=== PATIENT | female | born 1945 | race Two or more races ===

== ENCOUNTER 2016-12-12 01:38 | Inpatient (IN) | payer BC, OTHER ==
--- NOTE | 2016-12-12 02:02 | PDOC ---
History of Present Illness - General History Source: Patient Exam Limitations: No Limitations - History of Present Illness Initial Comments: 12/12/16 02:20 Patient is a 71 year old female with a significant past medical history of osteoporosis who presents to the ED with right breast pain. Patient was lying in bed as she developed a pain under the right pain with sudden onset. Patient describes the pain as squeezing tightening localized under the right breast. Patient states that taking deep breath exacerbates the pain. Patient never had this pain before. Patient took 2 aspirin to alleviate the pain. She also reports taking Robitussin for the cough before getting into bed. No recent fall or trauma. <Aurelia Chacon - Last Filed: 12/12/16 05:04> <Siobhan Dia - Last Filed: 12/12/16 05:15> - General Chief Complaint: Pain Stated Complaint: PAIN TO RT BREAST Time Seen by Provider: 12/12/16 02:01 Past History <Aurelia Chacon - Last Filed: 12/12/16 05:04> - Psycho/Social/Smoking Cessation Hx Suicidal Ideation: No Smoking History: Never smoked Have you smoked in the past 12 months: No Information on smoking cessation initiated: No Hx Alcohol Use: No Drug/Substance Use Hx: No <Siobhan Dia - Last Filed: 12/12/16 05:15> - Past Medical History Allergies/Adverse Reactions: Allergies Allergy/AdvReac Type Severity Reaction Status Date / Time No Known Allergies Allergy Verified 12/12/16 01:47 Home Medications: Ambulatory Orders Unobtainable [Unobtainable] 12/12/16 Review of Systems - Review of Systems Able to Perform ROS?: Yes Comments:: 12/12/16 02:20 GENERAL/CONSTITUTIONAL: No fever or chills. No weakness. HEAD, EYES, EARS, NOSE AND THROAT: No change in vision. No ear pain or discharge. No sore throat. CHEST: (+)right breast pain CARDIOVASCULAR: No chest pain or shortness of breath. RESPIRATORY: (+)cough No wheezing, or hemoptysis. GASTROINTESTINAL: No nausea, vomiting, diarrhea or constipation. GENITOURINARY: No dysuria, frequency, or change in urination. MUSCULOSKELETAL: No joint or muscle swelling or pain. No neck or back pain. SKIN: No rash NEUROLOGIC: No headache, vertigo, loss of consciousness, or change in strength/ sensation. ENDOCRINE: No increased thirst. No abnormal weight change. HEMATOLOGIC/LYMPHATIC: No anemia, easy bleeding, or history of blood clots. ALLERGIC/IMMUNOLOGIC: No hives or skin allergy. <Aurelia Chacon - Last Filed: 12/12/16 05:04> *Physical Exam - Vital Signs Last Vital Signs Temp Pulse Resp BP Pulse Ox 97.5 F L 99 H 20 138/80 99 12/12/16 01:47 12/12/16 01:47 12/12/16 01:47 12/12/16 01:47 12/12/16 01:47 - Physical Exam Comments: 12/12/16 02:21 GENERAL: Awake, alert, and fully oriented, in no acute distress HEAD: No signs of trauma EYES: PERRLA, EOMI, sclera anicteric, conjunctiva clear ENT: Auricles normal inspection, hearing grossly normal, nares patent, oropharynx clear without exudates. Moist mucosa NECK: Normal ROM, supple, no lymphadenopathy, JVD, or masses CHEST: (+) tenderness to the right breast. LUNGS: Breath sounds equal, clear to auscultation bilaterally. No wheezes, and no crackles HEART: Regular rate and rhythm, normal S1 and S2, no murmurs, rubs or gallops ABDOMEN: Soft, nontender, normoactive bowel sounds. No guarding, no rebound. No masses EXTREMITIES: Normal range of motion, no edema. No clubbing or cyanosis. No cords, erythema, or tenderness NEUROLOGICAL: Cranial nerves II through XII grossly intact. Normal speech, normal gait SKIN: Warm, Dry, normal turgor, no rashes or lesions noted. <Aurelia Chacon - Last Filed: 12/12/16 05:04> - Vital Signs Last Vital Signs Temp Pulse Resp BP Pulse Ox 97.5 F L 99 H 20 138/80 99 12/12/16 01:47 12/12/16 01:47 12/12/16 01:47 12/12/16 01:47 12/12/16 01:47 <Siobhan Dia - Last Filed: 12/12/16 05:15> ED Treatment Course - LABORATORY CBC & Chemistry Diagram: 12/12/16 02:22 12/12/16 02:22 <Aurelia Chacon - Last Filed: 12/12/16 05:04> - LABORATORY CBC & Chemistry Diagram: 12/12/16 02:22 12/12/16 02:22 <Siobhan Dia - Last Filed: 12/12/16 05:15> Medical Decision Making - Medical Decision Making 12/12/16 05:04 A call was placed to Dr. Gracie Valadez at her service. Awaiting a call back. <Aurelia Chacon - Last Filed: 12/12/16 05:04> - Medical Decision Making 12/12/16 04:33 Pt woke up in the middle of the night with right chest pain. She is grabbing her right breast and yelling in pain. Pain is not in the breast. SHe has clear lungs and normal heart rate and EKG is normal. CT chest shows RML pneumonia vs infarct: Patient Name: Diane Ortez THIS IS A PRELIMINARYREPORT FROM [facility] ATTENDANT EXAM: CT chest without contrast IMAGES: 381 INDICATION: Sudden right chest pain DATE OF SERVICE: 2016-12-12 02:58:01.0 COMPARISON: none FINDINGS: There is no aortic aneurysm. There is no significant mediastinal or hilar adenopathy. The heart size is normal. The trachea and bronchi are patent. There is no pleural or pericardial effusion. There is a moderate-sized right middle lobe consolidation with adjacent groundglass consolidation and small lingular consolidation which may represent pneumonia. Right middle lobe pulmonary infarct should also be considered, which can be followed up with CT angiography. No pneumothorax. Upper abdominal structures are normal. No fractures. As discussed with at 3:30 AM. IMPRESSION: Right middle lobe , greater than lingula, consolidations may represent pneumonia but right middle lobe infarct is considered which can be further evaluated with a CT angiogram. THIS DOCUMENT HAS BEEN ELECTRONICALLY SIGNED Ej Mohan MD CTA was done: Patient Name: Diane Ortez THIS IS A PRELIMINARYREPORT FROM [facility]END[facility] EXAM: CT angiogram of the chest IMAGES: 527 INDICATION: Rule out PE DATE OF SERVICE: 2016-12-12 04:08:12.0 COMPARISON: Recent unenhanced exam FINDINGS: There is no PE . Aortic aneurysm or dissection. Heart size is normal. The trachea and bronchi are patent. There is no pleural or pericardial effusion. No change in right middle lobe airspace consolidation with adjacent groundglass opacities or small lingular consolidation No fractures identified. The upper abdominal structures are normal. IMPRESSION: No PE identified. No change in right middle lobe and lingular consolidations which may represent pneumonia. THIS DOCUMENT HAS BEEN ELECTRONICALLY SIGNED Pt has a pneumonia; she will be treated with ceftriaxone and zithromax 12/12/16 04:41 Dr. Valadez is aware of the patient <Siobhan Dia - Last Filed: 12/12/16 05:15> *DC/Admit/Observation/Transfer - Attestations Scribe Attestion: 12/12/16 02:21 Documentation prepared by ASHOK Squires, acting as medical director of hospice for Siobhan Dia MD. <Aurelia Chacon - Last Filed: 12/12/16 05:04> - Discharge Dispostion Admit: Yes <Siobhan Dia - Last Filed: 12/12/16 05:15> Diagnosis at time of Disposition: Pneumonia, Chest pain of uncertain etiology - Discharge Dispostion Condition at time of disposition: Guarded - Referrals Referrals: Rosy Whalen MD [Primary Care Provider] -
[2016-12-12] MEDS ORDERED: KETOROLAC TROMETHAMINE 30 MG/1 ML VIAL IVPUSH ONE (02:17)
[2016-12-12] MEDS ORDERED: morphine CARPU-JECT 2 MG/1 ML DISP.SYRIN IVPUSH ONE (02:18)
[2016-12-12] MEDS ORDERED: morphine CARPU-JECT 2 MG/1 ML DISP.SYRIN ONE (02:26)
[2016-12-12] MEDS ORDERED: KETOROLAC TROMETHAMINE 30 MG/1 ML VIAL ONE (02:26)
[2016-12-12 02:42] LABS: BASOPHIL 0.2 % (0-2.0); EOSINOPHIL 0.4 % (0-4.5); MCH 29.7 pg (25.7-33.7); MCHC 33.4 g/dl (32.0-36.0); MEAN CELL VOLUME 89.2 fl (80-96); MEAN PLT VOLUME 7.9 fl (7.5-11.1); NEUTROPHILS 81.5 % (42.8-82.8); PLATELET COUNT 267 K/MM3 (134-434); RDW 13.9 % (11.6-15.6)
[2016-12-12 02:53] LABS: ALBUMIN 3.9 g/dl (3.4-5.0); ANION GAP 13 (8-16); BILIRUBIN,TOTAL 0.5 mg/dL (0.2-1.0); CALCIUM 8.6 mg/dL (8.5-10.1); CO2 25 mmol/L (21-32); CREATININE 0.7 mg/dL (0.55-1.02); GLUCOSE,RANDOM 138 mg/dL (74-106); SGOT/AST 17 U/L (15-37); SGPT/ALT 20 U/L (12-78); TOT PROT 7.2 g/dl (6.4-8.2)
[2016-12-12 02:55] LABS: ALK PHOS 53 U/L (45-117); TROPONIN I < 0.02 ng/ml (0.00-0.05)
[2016-12-12 04:06] LABS: INR 1.04 (0.82-1.09); PROTHROMBIN TIME (PATIENT) 11.5 SEC (9.98-11.88)
[2016-12-12 04:09] LABS: ACTIVATED PTT 33.1 SECONDS (26.9-34.4)
[2016-12-12] MEDS ORDERED: AZITHROMYCIN IVPB 250 ML IVPB ONE ×2 (04:36→04:52)
[2016-12-12] MEDS ORDERED: CEFTRIAXONE 50 ML IVPB ONE (04:36)
[2016-12-12] MEDS ORDERED: CEFTRIAXONE 50 ML ONE (04:52)
--- NOTE | 2016-12-12 10:28 | EKG ---
Test Reason : Blood Pressure : / mmHG Vent. Rate : 099 BPM Atrial Rate : 099 BPM P-R Int : 198 ms QRS Dur : 078 ms QT Int : 350 ms P-R-T Axes : 070 053 045 degrees QTc Int : 449 ms SINUS RHYTHM WITH OCCASIONAL PREMATURE VENTRICULAR COMPLEXES OTHERWISE NORMAL ECG WHEN COMPARED WITH ECG OF 25-JAN-2010 14:28, PREMATURE VENTRICULAR COMPLEXES ARE NOW PRESENT Confirmed by KENYATTA STARR, JARRET ([id number]) on 12/12/2016 10:28:11 AM Referred By: Confirmed By:JARRET YOU MD
[2016-12-12 14:17] LABS: TROPONIN I < 0.02 ng/ml (0.00-0.05)
--- NOTE | 2016-12-12 15:36 | CONSULT ---
Consultation: REQUESTING PROVIDER: CONSULT REQUEST: We have been asked to medically evaluate this patient for ( pulmonology). HISTORY OF PRESENT ILLNESS: Patient is a 71 year old female with a significant past medical history of osteoporosis who presents to the ED with right sided chest pain . Patient was lying in bed as she developed a pain under the right breast pain with sudden onset. pain was sharp, non radiating, increases with deep inspiration. Patient took 2 aspirin to alleviate the pain. Patient states that yesterday she also developed cough for which she took robutisin before getting into bed. Also reports chills on Monday. Denies fever. In ed CT was done which shower right upper lobe pneumonia. Patient states that after getting pain meds her pain has decreased and is feeling much better. denies sob denies sick contact, travel. non smoker. REVIEW OF SYSTEMS: CONSTITUTIONAL: Absent: fever, chills, diaphoresis, HEENT: Absent: rhinorrhea, nasal congestion, throat pain, throat swelling, CARDIOVASCULAR: Absent: chest pain, syncope, palpitations, irregular heart rate, lightheadedness , peripheral edema RESPIRATORY: Absent: cough, shortness of breath, dyspnea with exertion, orthopnea, wheezing, stridor, hemoptysis GASTROINTESTINAL: Absent: abdominal pain, abdominal distension, nausea, vomiting, GENITOURINARY: Absent: dysuria, frequency, urgency, PHYSICAL EXAMINATION Vital Signs - 24 hr 12/12/16 12/12/16 12/12/16 07:11 12:18 13:40 Temperature 98.2 F Pulse Rate [ 75 77 85 Right Apical] Respiratory 18 20 18 Rate Blood Pressure 108/57 180/113 124/57 [Right Arm] O2 Sat by Pulse 100 96 Oximetry (%) GENERAL: Awake, alert, and fully oriented, in no acute distress. HEAD: Normal with no signs of trauma. EYES: extraocular movements intact EARS, NOSE, THROAT: , oropharynx clear without exudates. Moist mucous membranes. LUNGS: Breath sounds equal, clear to auscultation bilaterally. crackles in right upper lobe. HEART:s1s2 normal ABDOMEN: Soft, nontender, not distended, normoactive bowel sounds, UPPER EXTREMITIES: 2+ pulses, warm, well-perfused. No cyanosis. LOWER EXTREMITIES: warm, well-perfused. No calf tenderness. No peripheral edema. Laboratory Results - last 24 hr 12/12/16 12:59 Creatine Kinase 107 Troponin I < 0.02 Active Medications Generic Name Dose Route Start Last Admin Trade Name Freq PRN Reason Stop Dose Admin Acetaminophen 650 mg 12/12/16 11:05 Tylenol - PO Q6H PRN FEVER OR PAIN Azithromycin 500 mg/ Dextrose 250 mls @ 250 mls/hr 12/13/16 10:00 IVPB DAILY VARUN Ceftriaxone Sodium 1 gm/ 50 mls @ 100 mls/hr 12/13/16 10:00 Dextrose IVPB DAILY VARUN ASSESSMENT/PLAN: community acquired pneumonia IV antibiotics ceftriaxone and azithro monitor vitals oxygen to keep spo2> 93 duoneb neb prn, if patient is short of breath get sputum culture get urine legionella/ strep pneumo pain control. Dispo: We will continue to follow the patient. Thank you for this consultative opportunity. Visit type - Emergency Visit Emergency Visit: Yes ED Registration Date: 12/12/16 Care time: The patient presented to the Emergency Department on the above date and was hospitalized for further evaluation of their emergent condition. - New Patient This patient is new to me today: Yes Date on this admission: 12/12/16 - Critical Care Critical Care patient: No
[2016-12-12] MEDS ORDERED: ALBUTEROL SO4 2.5/IPRATROPIUM 0.5 INH SOL 3 ML VIAL.NEB. NEB PRN (15:43)
[2016-12-12] MEDS ORDERED: KETOROLAC TROMETHAMINE 15 MG/ML VIAL IVPUSH PRN (15:47)
--- NOTE | 2016-12-12 16:15 | PN ---
Teaching Attending Note Name of Resident: Dane Dent ATTENDING PHYSICIAN STATEMENT I saw and evaluated the patient. I reviewed the resident's note and discussed the case with the resident. I agree with the resident's findings and plan as documented. PULMONARY IMP CHEST PAIN SYNDROME LIKELY PNEUMONIA RML,LINGULAR ANUM OSTEOPOROSIS PLAN IV ANTIBIOTICS O2 PRN SPUTUM C+S COLD AGGLUTININS F/U CHEST X-RAY TO DOCUMENT RESOLUTION OF INFILTRATES ANALGESICS DR GALLEGOS Problem List - Problems (1) Chest pain of uncertain etiology Code(s): R07.89 - OTHER CHEST PAIN (2) Pneumonia Code(s): J18.9 - PNEUMONIA, UNSPECIFIED ORGANISM (3) Osteoporosis Code(s): M81.0 - AGE-RELATED OSTEOPOROSIS W/O CURRENT PATHOLOGICAL FRACTURE
[2016-12-12 17:07] VITALS: BMI 19.7
--- NOTE | 2016-12-12 18:21 | HP ---
Admitting History and Physical - Primary Care Physician PCP: Patrick Valadez - Admission Chief Complaint: right under breast pain History of Present Illness: Pt woke up this AM, around 2 AM, with pain on the right side (under her right breast), worse with deep breathing. Pt came to ER, found to have PNA. History Source: Patient, Family Member (daugter at bedside) Limitations to Obtaining History: No Limitations - Past Medical History ...: No Musculoskeletal: Yes: Other (osteoporosis) - Smoking History Smoking history: Never smoked Have you smoked in the past 12 months: No - Alcohol/Substance Use Hx Alcohol Use: No Home Medications - Allergies Allergies/Adverse Reactions: Allergies Allergy/AdvReac Type Severity Reaction Status Date / Time No Known Allergies Allergy Verified 12/12/16 01:47 - Home Medications Home Medications: Ambulatory Orders Ibuprofen [Advil -] 2 tab PO PRN 12/12/16 Review of Systems - Review of Systems Constitutional: reports: Weakness (per patient daughter- over the last few days) . denies: Chills, Diaphoresis, Fever Eyes: denies: Blurred Vision, Double Vision, Eye Pain HENT: denies: Difficult Swallowing, Ear Discharge, Ear Pain, Epistaxis, Nasal Congestion, Throat Pain Neck: denies: Pain on Movement, Stiffness Cardiovascular: denies: Edema, Palpitations, Shortness of Breath Respiratory: denies: Cough, Exercise Intolerance, Hemoptysis, SOB, SOB on Exertion, Wheezing Gastrointestinal: denies: Abdominal Pain, Diarrhea, Nausea, Vomiting Genitourinary: denies: Burning, Discharge, Dysuria, Flank Pain, Frequency Breasts: reports: No Symptoms Reported Musculoskeletal: denies: Back Pain, Joint Swelling, Muscle Pain Integumentary: denies: Blister, Bruising, Erythema, Rash Neurological: denies: Change in LOC, Change in Speech, Numbness, Unsteady Gait Endocrine: denies: Excessive Sweating, Intolerance to Cold Hematology/Lymphatic: denies: Easily Bruised, Excessive Bleeding Psychiatric: denies: Anxiety, Depression Physical Examination Vital Signs: Vital Signs Temperature 99.2 F 12/12/16 16:06 Pulse Rate 89 12/12/16 16:06 Respiratory Rate 18 12/12/16 16:06 Blood Pressure 104/62 12/12/16 16:06 O2 Sat by Pulse Oximetry (%) 96 12/12/16 16:06 Constitutional: Yes: Calm. No: No Distress, Anxious Eyes: Yes: Conjunctiva Clear, EOM Intact, PERRL HENT: Yes: Normocephalic. No: Epistaxis, Pharyngeal Erythema Neck: Yes: Trachea Midline. No: Lymphadenopathy Cardiovascular: Yes: Regular Rate and Rhythm, S1, S2 Respiratory: Yes: Regular, Other (coarse on the right side; possible egophonia mid right lung) Gastrointestinal: Yes: Normal Bowel Sounds, Soft. No: Palpable Mass, Tenderness ...Rectal Exam: Yes: Deferred Renal/: No: CVA Tenderness - Left, CVA Tenderness - Right Breast(s): Yes: Other (deferred) Musculoskeletal: No: Back Pain, Joint Swelling Extremities: No: Cold, Cool, Cyanosis Edema: No Integumentary: No: Bruising, Rash Neurological: Yes: Alert, Oriented, Cran Nerves II-XII Intact Labs: reviewed Imaging - Results Chest X-ray: Report Reviewed Cat Scan: Report Reviewed Problem List - Problems (1) Pneumonia Assessment/Plan: IV abtx Pulmonary consult AM labs Code(s): J18.9 - PNEUMONIA, UNSPECIFIED ORGANISM (2) Osteoporosis Code(s): M81.0 - AGE-RELATED OSTEOPOROSIS W/O CURRENT PATHOLOGICAL FRACTURE (3) Chest pain of uncertain etiology Assessment/Plan: pain control Code(s): R07.89 - OTHER CHEST PAIN Assessment/Plan OOBTC AM labs
[2016-12-13 08:00] LABS: MCH 30.1 pg (25.7-33.7); MCHC 33.4 g/dl (32.0-36.0); MEAN CELL VOLUME 90.1 fl (80-96); MEAN PLT VOLUME 7.6 fl (7.5-11.1); PLATELET COUNT 259 K/MM3 (134-434); RDW 14.1 % (11.6-15.6); WHITE BLOOD COUNT 7.6 K/mm3 (4.0-10.0)
[2016-12-13] MEDS: ACETAMINOPHEN 325 MG TABLET (FP) PO PRN (08:21)
[2016-12-13 08:22] LABS: ALBUMIN 3.7 g/dl (3.4-5.0); ANION GAP 9 (8-16); CALCIUM 8.8 mg/dL (8.5-10.1); CO2 27 mmol/L (21-32); GLUCOSE,RANDOM 93 mg/dL (74-106)
[2016-12-13 08:26] LABS: ALK PHOS 51 U/L (45-117); BILIRUBIN,TOTAL 0.4 mg/dL (0.2-1.0); CREATININE 0.6 mg/dL (0.55-1.02); SGOT/AST 16 U/L (15-37); SGPT/ALT 18 U/L (12-78); TOT PROT 7.2 g/dl (6.4-8.2)
--- NOTE | 2016-12-13 09:09 | PN ---
Physical Exam: SUBJECTIVE: Patient seen and examined Patient feels better, states pain has decreased. denies sob, Palpitations states she coughed once in morning and produce white color sputum OBJECTIVE: Vital Signs Period Temp Pulse Resp BP Sys/Marcano Pulse Ox Last 24 Hr 98.2 F-99.2 F 77-89 18-20 104-180/57-113 96-96 GENERAL: Awake, alert, and fully oriented, in no acute distress. HEAD: Normal with no signs of trauma. EARS, NOSE, THROAT: , oropharynx clear without exudates. Moist mucous membranes. LUNGS: Breath sounds equal, clear to auscultation bilaterally. mild crackles in right upper lobe. HEART:s1s2 normal ABDOMEN: Soft, nontender, not distended, normoactive bowel sounds, UPPER EXTREMITIES: 2+ pulses, warm, well-perfused. No cyanosis. LOWER EXTREMITIES: warm, No calf tenderness. No peripheral edema. Laboratory Results - last 24 hr 12/12/16 12/13/16 12/13/16 12:59 06:20 06:20 WBC 7.6 RBC 4.00 Hgb 12.0 Hct 36.1 MCV 90.1 MCHC 33.4 RDW 14.1 Plt Count 259 MPV 7.6 Sodium 141 Potassium 4.0 Chloride 105 Carbon Dioxide 27 Anion Gap 9 BUN 16 Creatinine 0.6 Creat Clearance w eGFR > 60 Random Glucose 93 D Calcium 8.8 Total Bilirubin 0.4 AST 16 ALT 18 Alkaline Phosphatase 51 Creatine Kinase 107 Troponin I < 0.02 Total Protein 7.2 Albumin 3.7 Active Medications Generic Name Dose Route Start Last Admin Trade Name Freq PRN Reason Stop Dose Admin Acetaminophen 650 mg 12/12/16 11:05 12/13/16 08:21 Tylenol - PO 650 mg Q6H PRN Administration FEVER OR PAIN Albuterol/Ipratropium 1 amp 12/12/16 15:43 Duoneb - NEB Q6H PRN SHORTNESS OF BREATH Azithromycin 500 mg 12/13/16 10:00 Zithromax 500mg Ivpb (Pre-Docked) IVPB DAILY VARUN Ceftriaxone Sodium 1 gm 12/13/16 10:00 Rocephin 1gm Ivpb (Pre-Docked) IVPB DAILY VARUN Ketorolac Tromethamine 15 mg 12/12/16 15:47 Toradol Injection - IVPUSH 12/17/16 15:46 Q6H PRN PAIN ASSESSMENT/PLAN: community acquired pneumonia osteoprosis pleuritic chest pain Plan IV antibiotics ceftriaxone and azithro monitor vitals oxygen to keep spo2> 93 duoneb neb prn, if patient has short of breath sputum culture pending urine legionella and influenza negative pain control. Visit type - Emergency Visit Emergency Visit: Yes ED Registration Date: 12/12/16 Care time: The patient presented to the Emergency Department on the above date and was hospitalized for further evaluation of their emergent condition. - New Patient This patient is new to me today: No - Critical Care Critical Care patient: No
[2016-12-13] MEDS: cefTRIAXone 1 GM/50 ML BAG (PRE-DOCKED) IVPB SCH (09:12)
[2016-12-13] MEDS ORDERED: CEFTRIAXONE 1 GM in DEXTROSE 5%-WATER - 50 ML IVPB SCH (10:00)
[2016-12-13] MEDS ORDERED: AZITHROMYCIN IVPB 500 MG in DEXTROSE 5%-WATER - 250 ML IVPB SCH (10:00)
--- NOTE | 2016-12-13 10:27 | PN ---
Progress Note, Physician History of Present Illness: Pt still c/o right side chest/ breast pain with inspiration, cough. Pt. w/o SOB, palp., left side CP, abd pain. - Current Medication List Current Medications: Active Medications Acetaminophen (Tylenol -) 650 mg PO Q6H PRN PRN Reason: FEVER OR PAIN Last Admin: 12/13/16 08:21 Dose: 650 mg Albuterol/Ipratropium (Duoneb -) 1 amp NEB Q6H PRN PRN Reason: SHORTNESS OF BREATH Azithromycin (Zithromax 500mg Ivpb (Pre-Docked)) 500 mg IVPB DAILY VARUN Ceftriaxone Sodium (Rocephin 1gm Ivpb (Pre-Docked)) 1 gm IVPB DAILY VARUN Last Admin: 12/13/16 09:12 Dose: 1 gm Ketorolac Tromethamine (Toradol Injection -) 15 mg IVPUSH Q6H PRN PRN Reason: PAIN Stop: 12/17/16 15:46 - Objective Vital Signs: Vital Signs Temperature 98.5 F 12/13/16 08:47 Pulse Rate 80 12/13/16 08:47 Respiratory Rate 18 12/13/16 08:47 Blood Pressure 120/58 12/13/16 08:47 O2 Sat by Pulse Oximetry (%) 96 12/12/16 21:00 Constitutional: Yes: No Distress, Calm Cardiovascular: Yes: Regular Rate and Rhythm, S1, S2 Respiratory: Yes: Regular, Rales (on the right middle lung field) Gastrointestinal: Yes: Normal Bowel Sounds, Soft. No: Palpable Mass, Tenderness Edema: No Neurological: Yes: Alert, Oriented Labs: CBC, BMP 12/13/16 06:20 12/13/16 06:20 INR, PTT INR 1.04 (0.82-1.09) 12/12/16 03:30 Problem List - Problems (1) Pneumonia Assessment/Plan: IV abtx Pulmonary consult appreciated AM labs Code(s): J18.9 - PNEUMONIA, UNSPECIFIED ORGANISM (2) Osteoporosis Code(s): M81.0 - AGE-RELATED OSTEOPOROSIS W/O CURRENT PATHOLOGICAL FRACTURE (3) Chest pain of uncertain etiology Code(s): R07.89 - OTHER CHEST PAIN Assessment/Plan OOBTC AM labs
[2016-12-13] MEDS: AZITHROMYCIN IVPB 500 MG/250 ML D5W PRE-DOCKED IVPB SCH (10:37)
--- NOTE | 2016-12-13 11:09 | PN ---
Teaching Attending Note Name of Resident: Dane Dent ATTENDING PHYSICIAN STATEMENT I saw and evaluated the patient. I reviewed the resident's note and discussed the case with the resident. I agree with the resident's findings and plan as documented. SUBJECTIVE: Breathing feels better today. Still with pleuritic type pain with cough and deep breathing in the Right anterior chest wall. OBJECTIVE: Intake & Output 12/10/16 12/11/16 12/12/16 12/13/16 23:59 23:59 23:59 23:59 Intake Total 120 Balance 120 Weight 100 lb 12.8 oz Last Vital Signs Temp Pulse Resp BP Pulse Ox 98.5 F 80 18 120/58 96 12/13/16 08:47 12/13/16 08:47 12/13/16 08:47 12/13/16 08:47 12/12/16 21:00 Active Medications Acetaminophen (Tylenol -) 650 mg PO Q6H PRN PRN Reason: FEVER OR PAIN Last Admin: 12/13/16 08:21 Dose: 650 mg Albuterol/Ipratropium (Duoneb -) 1 amp NEB Q6H PRN PRN Reason: SHORTNESS OF BREATH Azithromycin (Zithromax 500mg Ivpb (Pre-Docked)) 500 mg IVPB DAILY [facility] Last Admin: 12/13/16 10:37 Dose: 500 mg Ceftriaxone Sodium (Rocephin 1gm Ivpb (Pre-Docked)) 1 gm IVPB DAILY [facility] Last Admin: 12/13/16 09:12 Dose: 1 gm Ketorolac Tromethamine (Toradol Injection -) 15 mg IVPUSH Q6H PRN PRN Reason: PAIN Stop: 12/17/16 15:46 Methylprednisolone Sodium Succinate (Solu-Medrol -) 40 mg IVPB DAILY [facility] Stop: 12/16/16 10:01 GENERAL: Awake, alert, oriented, in no acute distress. HEAD: Normal with no signs of trauma. EARS, NOSE, THROAT: , oropharynx clear without exudates. Moist mucous membranes. LUNGS: Few faint rhonchi / crackles in right mid lung field HEART:s1s2 normal ABDOMEN: Soft, nontender, not distended, normoactive bowel sounds, UPPER EXTREMITIES: 2+ pulses, warm, well-perfused. No cyanosis. LOWER EXTREMITIES: warm, No calf tenderness. No peripheral edema. Laboratory Results - last 24 hr 12/12/16 12/13/16 12/13/16 12:59 06:20 06:20 WBC 7.6 RBC 4.00 Hgb 12.0 Hct 36.1 MCV 90.1 MCHC 33.4 RDW 14.1 Plt Count 259 MPV 7.6 ESR 51 H Sodium Potassium Chloride Carbon Dioxide Anion Gap BUN Creatinine Creat Clearance w eGFR Random Glucose Calcium Total Bilirubin AST ALT Alkaline Phosphatase Creatine Kinase 107 Troponin I < 0.02 Total Protein Albumin 12/13/16 06:20 WBC RBC Hgb Hct MCV MCHC RDW Plt Count MPV ESR Sodium 141 Potassium 4.0 Chloride 105 Carbon Dioxide 27 Anion Gap 9 BUN 16 Creatinine 0.6 Creat Clearance w eGFR > 60 Random Glucose 93 D Calcium 8.8 Total Bilirubin 0.4 AST 16 ALT 18 Alkaline Phosphatase 51 Creatine Kinase Troponin I Total Protein 7.2 Albumin 3.7 ASSESSMENT/PLAN: RML community acquired pneumonia Osteoporosis Pleuritic chest pain Plan IV antibiotics : ceftriaxone and azithromycin oxygen as needed BD TX PRN Follow sputum culture Daily Medrol Pain control Ambulate Dr Alanis
[2016-12-13] MEDS ORDERED: methylPREDNISolone NA SUCC 40 MG/1 ML VIAL IVPB SCH (11:15)
--- NOTE | 2016-12-14 08:51 | PN ---
Physical Exam: SUBJECTIVE: Patient seen and examined patient feels better states breathing is much better. states pain has improved significantly. denies fever and chills. OBJECTIVE: Vital Signs Period Temp Pulse Resp BP Sys/Marcano Pulse Ox Last 24 Hr 97.7 F-98.3 F 74-78 18-20 100-111/57-65 97-97 GENERAL: Awake, alert, and fully oriented, in no acute distress. HEAD: Normal with no signs of trauma. EARS, NOSE, THROAT: , oropharynx clear without exudates. Moist mucous membranes. LUNGS: Breath sounds equal, clear to auscultation bilaterally. mild crackles in right upper lobe. HEART:s1s2 normal ABDOMEN: Soft, nontender, not distended, normoactive bowel sounds, UPPER EXTREMITIES: 2+ pulses, warm, well-perfused. No cyanosis. LOWER EXTREMITIES: warm, No calf tenderness. No peripheral edema. Laboratory Results - last 24 hr 12/13/16 12/13/16 06:20 06:20 ESR 51 H Sodium 141 Potassium 4.0 Chloride 105 Carbon Dioxide 27 Anion Gap 9 BUN 16 Creatinine 0.6 Creat Clearance w eGFR > 60 Random Glucose 93 D Calcium 8.8 Total Bilirubin 0.4 AST 16 ALT 18 Alkaline Phosphatase 51 Total Protein 7.2 Albumin 3.7 Active Medications Generic Name Dose Route Start Last Admin Trade Name Freq PRN Reason Stop Dose Admin Acetaminophen 650 mg 12/12/16 11:05 12/13/16 08:21 Tylenol - PO 650 mg Q6H PRN Administration FEVER OR PAIN Albuterol/Ipratropium 1 amp 12/12/16 15:43 Duoneb - NEB Q6H PRN SHORTNESS OF BREATH Azithromycin 500 mg 12/13/16 10:00 12/13/16 10:37 Zithromax 500mg Ivpb (Pre-Docked) IVPB 500 mg DAILY VARUN Administration Ceftriaxone Sodium 1 gm 12/13/16 10:00 12/13/16 09:12 Rocephin 1gm Ivpb (Pre-Docked) IVPB 1 gm DAILY VARUN Administration Ketorolac Tromethamine 15 mg 12/12/16 15:47 Toradol Injection - IVPUSH 12/17/16 15:46 Q6H PRN PAIN Methylprednisolone Sodium Succinate 40 mg 12/13/16 11:15 12/13/16 12:18 Solu-Medrol - IVPB 12/16/16 10:01 40 mg DAILY VARUN Administration ASSESSMENT/PLAN: community acquired pneumonia osteoprosis pleuritic chest pain Plan continuw with antibiotics monitor vitals oxygen to keep spo2> 93 change po steroid, started for CAP duoneb neb prn, if patient has short of breath sputum culture pending urine legionella and influenza negative pain control. Visit type - Emergency Visit Emergency Visit: Yes ED Registration Date: 12/12/16 Care time: The patient presented to the Emergency Department on the above date and was hospitalized for further evaluation of their emergent condition. - New Patient This patient is new to me today: No - Critical Care Critical Care patient: No
[2016-12-14 09:12] LABS: CALCIUM 8.7 mg/dL (8.5-10.1); COCKROFT - GAULT 74.4855; CREATININE 0.5 mg/dL (0.55-1.02)
[2016-12-14] MEDS: predniSONE 20 MG TABLET (UD) PO SCH (10:13)
[2016-12-14] MEDS: AZITHROMYCIN IVPB 500 MG/250 ML D5W PRE-DOCKED IVPB SCH (10:14)
[2016-12-14] MEDS: cefTRIAXone 1 GM/50 ML BAG (PRE-DOCKED) IVPB SCH (10:14)
[2016-12-14] MEDS: ACETAMINOPHEN 325 MG TABLET (FP) PO PRN (10:16)
--- NOTE | 2016-12-14 11:40 | PN ---
[id number] is some improvement. Pt. w/o SOB, palp., left side CP, abd pain. - Current Medication List Current Medications: Active Medications Acetaminophen (Tylenol -) 650 mg PO Q6H PRN PRN Reason: FEVER OR PAIN Last Admin: 12/14/16 10:16 Dose: 650 mg Albuterol/Ipratropium (Duoneb -) 1 amp NEB Q6H PRN PRN Reason: SHORTNESS OF BREATH Azithromycin (Zithromax 500mg Ivpb (Pre-Docked)) 500 mg IVPB DAILY [facility] Last Admin: 12/14/16 10:14 Dose: 500 mg Ceftriaxone Sodium (Rocephin 1gm Ivpb (Pre-Docked)) 1 gm IVPB DAILY [facility] Last Admin: 12/14/16 10:14 Dose: 1 gm Ketorolac Tromethamine (Toradol Injection -) 15 mg IVPUSH Q6H PRN PRN Reason: PAIN Stop: 12/17/16 15:46 Prednisone (Deltasone -) 40 mg PO DAILY [facility] Last Admin: 12/14/16 10:13 Dose: 40 mg - Objective Vital Signs: Vital Signs Temperature 98 F 12/14/16 06:00 Pulse Rate 76 12/14/16 06:00 Respiratory Rate 18 12/14/16 06:00 Blood Pressure 101/57 12/14/16 06:00 O2 Sat by Pulse Oximetry (%) 97 12/13/16 21:00 Constitutional: Yes: No Distress, Calm Cardiovascular: Yes: Regular Rate and Rhythm, S1, S2 Respiratory: Yes: Regular, Other (coarse and rhionchi in R mid lung field). No : Wheezes Gastrointestinal: Yes: Normal Bowel Sounds, Soft. No: Tenderness Edema: No Labs: CBC, BMP 12/13/16 06:20 12/14/16 06:50 INR, PTT INR 1.04 (0.82-1.09) 12/12/16 03:30 Problem List - Problems (1) Pneumonia Assessment/Plan: IV abtx Pulmonary consult appreciated AM labs Code(s): J18.9 - PNEUMONIA, UNSPECIFIED ORGANISM (2) Osteoporosis Code(s): M81.0 - AGE-RELATED OSTEOPOROSIS W/O CURRENT PATHOLOGICAL FRACTURE (3) Chest pain of uncertain etiology Assessment/Plan: secondary to PNA pain control Code(s): R07.89 - OTHER CHEST PAIN Assessment/Plan OOBTC AM labs
--- NOTE | 2016-12-14 15:25 | PN ---
Teaching Attending Note Name of Resident: Dane Dent ATTENDING PHYSICIAN STATEMENT I saw and evaluated the patient. I reviewed the resident's note and discussed the case with the resident. I agree with the resident's findings and plan as documented. aGREE WITH CURRENT LINE OF TREATMENT WILL LIKELY BE ABLE TO CONTINUE TREATMENT AN OUTPATIENT IN AM Gary CARDOSO MD
[2016-12-14] MEDS ORDERED: PT OWN MED DRAWER 7, Y5N ONE (16:01)
[2016-12-15 06:17] VITALS: BP 121/69; PULSE 87; TEMP 98.1
--- NOTE | 2016-12-15 09:06 | PN ---
Physical Exam: SUBJECTIVE: Patient seen and examined denies chest pain, sob, cough afebrile OBJECTIVE: Vital Signs Period Temp Pulse Resp BP Sys/Marcano Pulse Ox Last 24 Hr 97.7 F-98.8 F 78-92 16-20 109-141/60-84 97 GENERAL: Awake, alert, and fully oriented, in no acute distress. HEAD: Normal with no signs of trauma. EARS, NOSE, THROAT: , oropharynx clear without exudates. Moist mucous membranes. LUNGS: Breath sounds equal, clear to auscultation bilaterally.no crackles HEART:s1s2 normal ABDOMEN: Soft, nontender, not distended, normoactive bowel sounds, UPPER EXTREMITIES: 2+ pulses, warm, well-perfused. No cyanosis. LOWER EXTREMITIES: warm, No calf tenderness. No peripheral edema. Laboratory Results - last 24 hr 12/14/16 06:50 Sodium 144 Potassium 3.9 Chloride 107 Carbon Dioxide 26 Anion Gap 11 BUN 12 D Creatinine 0.5 L Random Glucose 81 Calcium 8.7 Active Medications Generic Name Dose Route Start Last Admin Trade Name Freq PRN Reason Stop Dose Admin Acetaminophen 650 mg 12/12/16 11:05 12/14/16 10:16 Tylenol - PO 650 mg Q6H PRN Administration FEVER OR PAIN Albuterol/Ipratropium 1 amp 12/12/16 15:43 Duoneb - NEB Q6H PRN SHORTNESS OF BREATH Azithromycin 500 mg 12/13/16 10:00 12/14/16 10:14 Zithromax 500mg Ivpb (Pre-Docked) IVPB 500 mg DAILY VARUN Administration Ceftriaxone Sodium 1 gm 12/13/16 10:00 12/14/16 10:14 Rocephin 1gm Ivpb (Pre-Docked) IVPB 1 gm DAILY VARUN Administration Ketorolac Tromethamine 15 mg 12/12/16 15:47 Toradol Injection - IVPUSH 12/17/16 15:46 Q6H PRN PAIN Prednisone 40 mg 12/14/16 10:00 12/14/16 10:13 Deltasone - PO 40 mg DAILY VARUN Administration ASSESSMENT/PLAN: community acquired pneumonia osteoprosis pleuritic chest pain Plan can change to po antibiotics augmentin for 6 more days. prednisone 40mg po for 2 more days WILL LIKELY BE ABLE TO CONTINUE TREATMENT AN OUTPATIENT WILL NEED REPEAT IMAGING IN 4-6 WEEKS TO DOCUMENT CLEARING. outpatient pulmonary follow up pain control. Visit type - Emergency Visit Emergency Visit: Yes ED Registration Date: 12/12/16 Care time: The patient presented to the Emergency Department on the above date and was hospitalized for further evaluation of their emergent condition. - New Patient This patient is new to me today: No - Critical Care Critical Care patient: No
--- NOTE | 2016-12-15 09:34 | PN ---
Teaching Attending Note Name of Resident: Dane Dent ATTENDING PHYSICIAN STATEMENT I saw and evaluated the patient. I reviewed the resident's note and discussed the case with the resident. I agree with the resident's findings and plan as documented. SUBJECTIVE: Breathing feels overall better. Comfortable without O2. Ambulating without SOB. Pleuritic CP is resolved. Intake & Output 12/12/16 12/13/16 12/14/16 12/15/16 23:59 23:59 23:59 23:59 Intake Total 1150 1200 Balance 1150 1200 Weight 100 lb 12.8 oz 102 lb 4.8 oz Last Vital Signs Temp Pulse Resp BP Pulse Ox 98.1 F 87 18 121/69 97 12/15/16 06:00 12/15/16 06:00 12/15/16 06:00 12/15/16 06:00 12/14/16 21:00 Active Medications Acetaminophen (Tylenol -) 650 mg PO Q6H PRN PRN Reason: FEVER OR PAIN Last Admin: 12/14/16 10:16 Dose: 650 mg Albuterol/Ipratropium (Duoneb -) 1 amp NEB Q6H PRN PRN Reason: SHORTNESS OF BREATH Azithromycin (Zithromax 500mg Ivpb (Pre-Docked)) 500 mg IVPB DAILY [facility] Last Admin: 12/14/16 10:14 Dose: 500 mg Ceftriaxone Sodium (Rocephin 1gm Ivpb (Pre-Docked)) 1 gm IVPB DAILY [facility] Last Admin: 12/14/16 10:14 Dose: 1 gm Ketorolac Tromethamine (Toradol Injection -) 15 mg IVPUSH Q6H PRN PRN Reason: PAIN Stop: 12/17/16 15:46 Prednisone (Deltasone -) 40 mg PO DAILY [facility] Last Admin: 12/14/16 10:13 Dose: 40 mg GENERAL: Awake, alert, oriented, in no acute distress. HEAD: Normal with no signs of trauma. EARS, NOSE, THROAT: , oropharynx clear without exudates. Moist mucous membranes. LUNGS: Few faint rhonchi / crackles in right mid lung field HEART:s1s2 normal ABDOMEN: Soft, nontender, not distended, normoactive bowel sounds, UPPER EXTREMITIES: 2+ pulses, warm, well-perfused. No cyanosis. LOWER EXTREMITIES: warm, No calf tenderness. No peripheral edema. ASSESSMENT/PLAN: RML community acquired pneumonia Osteoporosis Pleuritic chest pain Plan Can change to PO Augmentin to complete 10 days total Can D/C today Dr Alanis
[2016-12-15] MEDS: cefTRIAXone 1 GM/50 ML BAG (PRE-DOCKED) IVPB SCH (09:45)
[2016-12-15] MEDS: AZITHROMYCIN IVPB 500 MG/250 ML D5W PRE-DOCKED IVPB SCH (09:45)
[2016-12-15] MEDS: predniSONE 20 MG TABLET (UD) PO SCH (09:45)
--- NOTE | 2016-12-15 10:36 | DS ---
Physical Examination Vital Signs: Vital Signs Temperature 98.1 F 12/15/16 06:00 Pulse Rate 87 12/15/16 06:00 Respiratory Rate 18 12/15/16 06:00 Blood Pressure 121/69 12/15/16 06:00 O2 Sat by Pulse Oximetry (%) 97 12/14/16 21:00 Findings/Remarks: Pt. w/o SOB, PALP, CP, abd pain, diarrhea. Pt. walked last night w/o [place]. Constitutional: Yes: No Distress, Calm Cardiovascular: Yes: Regular Rate and Rhythm, S1, S2 Respiratory: Yes: Regular, CTA Bilaterally. No: Rales Gastrointestinal: Yes: Normal Bowel Sounds, Soft. No: Tenderness Edema: No Neurological: Yes: Alert, Oriented Labs: CBC, BMP 12/13/16 06:20 12/14/16 06:50 Discharge Summary Reason For Visit: CHEST PAIN TO UNCERTAIN ETIOLOGY Current Active Problems Chest pain of uncertain etiology (Acute) Osteoporosis (Acute) Pneumonia (Acute) Procedures: Principal: Chest CTA. [facility] Course: Pt came to ER after woke up in the meddle of the night with right side chest pain. In ER it was noticed to hade RML PNA. Pt was started on IV ABTx ( Ceftriaxone, ZIthromax). Pt was seen by Pulmonary (Dr. Colvin); she was started on Prednisone (short coarse). Pt.'s condition improved. Pt. to be DC'ed home today with PCP (Dr. Sara Whalen) f/u. Condition: Guarded - Instructions Diet, Activity, Other Instructions: Resume diet Follow up with Dr. Whalen Next week. Pt. needs a repeated CXR in 4 weeks. Referrals: Rosy Whalen MD [Primary Care Provider] - (next week) Disposition: HOME - Home Medications Comprehensive Discharge Medication List: Ambulatory Orders Ibuprofen [Advil -] 2 tab PO PRN 12/12/16
[2016-12-16] MEDS ORDERED: AMOX TR/POT CLAV 875MG/125MG TABLETS (FP) PO SCH (10:00)
== END 2016-12-15 12:35 | disposition home or self-care (01) | DRG 195 ==
LOC: JER 01:38 → JERBED 05:13 → J8W 16:25
PROVIDERS: ADMIT Specialist; ATTEND Specialist
DX: J18.9 Pneumonia, unspecified organism (principal); M81.0 Age-related osteoporosis without current pathological fracture; R07.89 Other chest pain
CPT/HCPCS: 36415; 71020-TC; 71250-TC; 71275-TC; 80048; 80053; 82550; 84484; 85025; 85027; 85379; 85610; 85651; 85730; 87040; 87070; 87205; 87254; 87804; 87899; 93005; 93010; 93970-TC; 99282-25

== ENCOUNTER 2019-02-07 09:01 | Day surgery (SDC) | payer BC ==
[2019-02-06 11:07] VITALS: BMI 20.7
[2019-02-07] MEDS: PHENYLEPHRINE 2.5% OPHTH SOLN 15 ML BOTTLE OP SCH ×3 (08:50→09:55)
[2019-02-07] MEDS: TROPICAMIDE 1% OPHTH SOLN 15 ML BOTTLE ONE ×3 (08:50→09:56)
[2019-02-07] MEDS: CIPROFLOXACIN HCL 0.3% OPHTH 2.5ML BOTTLE OP SCH ×3 (08:50→09:55)
[2019-02-07] MEDS: KETOROLAC TROMETHAMINE 0.5% EYE DROP 1 DROP DROPS OP SCH ×3 (08:50→09:55)
[~2019-02-07 09:01] MED LIST: ACETAMINOPHEN 325 MG TABLET (FP) PO PRN; TOBRAMYCIN/DEXAMETHASONE OPHTH. OINTMENT 1 TUBE TP ONE; TROPICAMIDE 1% OPHTH SOLN 15 ML BOTTLE OP SCH
[2019-02-07 09:37] VITALS: TEMP 97.8
--- NOTE | 2019-02-07 10:28 | HP ---
- Patient Scheduled date of Surgery: 02/07/19 Scheduled Surgical Procedure: Phacoemulsification and cataract extraction with PCIOL Affected Eye: Left Chief Complaint (Indication for surgery): Decreased vision affecting ADLs - Ocular History Other Eye History: Other (fuch's endothelial dystrophy, OHTN, ERM OD , PVD) Eye Medications: brimonidine , vigamox, tracy Previous Eye Surgery: none - Medical History Illnesses: Other (bone fragility syndrome, osteoporosis, anxiety) Current Medications: Ambulatory Orders Ibuprofen [Advil -] 2 tab PO PRN 12/12/16 Ascorbic Acid [Vitamin C -] 500 mg PO DAILY 02/06/19 Calcium 250Mg/Vit-D 125 Units [Oscal 250 mg+D -] 1 combo PO DAILY 02/06/19 Ergocalciferol (Vitamin D2) [Vitamin D2] 2,000 unit PO DAILY 02/06/19 Ibandronate Sodium [Boniva] 150 mg PO MONTHLY 02/07/19 Allergies/Adverse Reactions: Allergies Allergy/AdvReac Type Severity Reaction Status Date / Time No Known Allergies Allergy Verified 02/07/19 09:37 Ocular Examination - Best Corrected Visual Acuity Distance: Right eye: 20/40 Distance: Left eye: 20/40 - External/Slit Lamp Examination Abnormalities: gutattae - Intraocular Pressure Intraocular Pressure - Right eye: 16 Intraocular Pressure-Left eye: 16 - Lens Lens: 3+ NS 2+ cortical changes - Vitreous/Retina Vitreous/Retina: C:D 0.25 m/v/p wnl - Special Examination M - Right eye: -0.50 -1.50 x 105 M - Left eye: -1.50 -1.50 x 075 K - Right eye: 43.75/44.50 x020 K - Left eye: 44.5/44.75 x 165 AL - Left eye: 22.57 IOL bag: +23.0 AUOOTO IOL sulcus: +22.o MN60AC IOL AC: +19.0 MTA 4UO - Impression Impression: Cataract Left Eye - Plan Plan: Phacoemulsification and cataract extraction - IOL Left eye Post-hospital care will be provided in office on: 02/08/19
--- NOTE | 2019-02-07 10:29 | HP ---
History & Physical Update - History History: No Change - Physical Physical: No Change - Assessment Assessment: No Change - Plan Plan: No Change (reviewed H and P from 01/29/[address] Whalen, no changes)
[2019-02-07] MEDS ORDERED: LIDOCAINE HCL/PF 2% SDV 5ML VIAL ONE (10:37)
[2019-02-07] MEDS ORDERED: BUPIVACAINE HCL/PF 0.75% 10 ML VIAL ONE (10:37)
[2019-02-07] MEDS ORDERED: PROPOFOL 20 ML ONE (10:45)
[2019-02-07] MEDS ORDERED: TETRACAINE 0.5% OPHTH SOLN 2 ML BOTTLE OS ONE (10:46)
[2019-02-07] MEDS ORDERED: BUPIVACAINE HCL/PF 0.75% 10 ML VIAL NR ONE (10:53)
[2019-02-07] MEDS ORDERED: LIDOCAINE HCL/PF 2% SDV 5ML VIAL INF ONE (10:53)
[2019-02-07] MEDS ORDERED: POVIDONE-IODINE 5% OPHTHALMIC PREP 30 ML SOLUTION OS ONE (10:55)
[2019-02-07] MEDS ORDERED: EPINEPHrine/PF 1 MG/1 ML (1:1,000) AMPULE SQ ONE ×2 (11:00→11:07)
[2019-02-07] MEDS ORDERED: BSS (NA/CA/MG/K) BALANCED SALT SOLUTION OPHTH SOLN 15 ML BOTTLE OS ONE (11:00)
[2019-02-07] MEDS ORDERED: CHONDROITIN SU A/HYALUR SOD 1 KIT IO ONE (11:00)
[2019-02-07] MEDS ORDERED: EPINEPHrine/PF 1 MG/1 ML (1:1,000) AMPULE ONE (11:03)
[2019-02-07] MEDS ORDERED: TOBRAMYCIN/DEXAMETHASONE OPHTH. OINTMENT 1 TUBE TP ONE (11:27)
--- NOTE | 2019-02-07 11:31 | OP ---
Ophthalmology Operative Note Pre-Operative Diagnosis: Cataract Affected Eye: Left Operation: Phacoemulsification and cataract extraction with PCIOL Findings: NS Cataract Post-Operative Diagnosis: Same as Pre-op Tourist Cabin Keeper: None Anesthesiologist: Marquez Barreto Specimens Removed: none Estimated blood loss: < 1 cc Drains & Tubes with Location: none Operative Report Dictated: Yes
--- NOTE | 2019-02-07 11:58 | OP ---
DATE OF OPERATION: 02/07/2019 PREOPERATIVE DIAGNOSIS: Nuclear sclerotic cataract, left eye. POSTOPERATIVE DIAGNOSIS: Nuclear sclerotic cataract, left eye. PROCEDURE: Phacoemulsification and cataract extraction with insertion of posterior chamber intraocular lens, left eye. SURGEON: Sylvie Shipman MD GEOTHERMAL INSTALLER: None. ANESTHESIA: Peribulbar block. BACKEND DEVELOPER: Marquez Barreto CRNA OPERATIVE PROCEDURE: The patient received satisfactory intravenous sedation. Then, the patient received local anesthesia using a 50/50 mixture of lidocaine 2% and Marcaine 0.75%. A Van Lint lid block was delivered to the left eye using 2 mL of the mixture in a peribulbar injection using 4 mL of the mixture. The patient was prepped and draped in the usual sterile fashion so as to expose only the left eye. Ophthalmic Betadine was instilled into the inferior fornix and lashes were taped out of the surgical field. An eyelid speculum was placed into the left eye. Paracentesis was made in inferior temporal clear cornea at the limbus. Then 0.5 mL of nonpreserved lidocaine 1% was injected into the anterior chamber and then 1 mL of dilute epinephrine 1:10,000 was injected into the anterior chamber to improve pupillary dilation. Viscoelastic material was instilled into the anterior chamber via the paracentesis. A 2.4-mm keratome blade was then used to create the main incision in temporal clear cornea at the limbus. A continuous curvilinear capsulorrhexis was performed using a cystotome and Utrata forceps. Hydrodissection of the lens cortex was performed using BSS on a cannula until the nucleus was noted to be freely rotating. The phacoemulsification tip was then inserted via the main wound and used to scope 2 perpendicular grooves into the lens nucleus. The nucleus was cracked into 4 quadrants. Each quadrant was lifted out of the capsule into the iris plane and individually phacoemulsified. The remaining cortical material was then aspirated using the irrigation/aspiration port. The capsular bag was inflated using ProVisc and a preloaded AcrySof lens model [id number] power +23.0 diopters was injected into the capsular bag. It was centered using a Sinskey hook. The residual viscoelastic material was removed from the anterior chamber using irrigation and aspiration. The wound edges were hydrated using BSS. The wound was tested for leakage and 1 10 nylon suture was placed over the wound The wound was again tested for leakage and was found to be watertight. Tobradex ointment was placed in the eye , and the speculum was removed from the eye, and the eyelid was closed. A sterile dressing and shield were placed over the eye. The patient was transferred to the recovery room in stable condition, told to follow up in 1 day. Sid [id number] MTDD
[2019-02-07 13:02] VITALS: BP 120/70; PULSE 78
== END 2019-02-07 13:02 | disposition home or self-care (01) ==
LOC: JASU-SURG 09:01
PROVIDERS: ATTEND Ophthalmology
PROC: 08RK3JZ Replacement of Left Lens with Synthetic Substitute, Percutaneous Approach (ICD-10-PCS; principal; 2019-02-07 10:30)
DX: H25.12 Age-related nuclear cataract, left eye (principal)